=== PATIENT | female | born 1980 | race Two or more races ===

== ENCOUNTER 2021-08-11 23:45 | Emergency (ER) | payer OTHER ==
[~2021-08-11] VITALS: Ht 165.1 cm; Wt 79.4 kg
[2021-08-12] MEDS ORDERED: ZOVIRAX800 MG PO (00:06)
[2021-08-12] MEDS ORDERED: ZOVIRAX5 GM (00:07)
[2021-08-12] MEDS ORDERED: BENADRYL ALLERG25 MG PO (04:29)
== END 2021-08-12 04:46 | disposition home or self-care (01) ==
LOC: ER 23:45
DX: L30.9 Dermatitis, unspecified (principal); B02.8 Zoster with other complications

== ENCOUNTER 2022-04-17 12:32 | Outpatient (CLI) | payer OTHER ==
[~2022-04-17 12:32] MED LIST: BENADRYL ALLERG25 MG PO; ZOVIRAX5 GM; ZOVIRAX800 MG PO
== END 2022-04-17 12:35 | disposition home or self-care (01) ==
LOC: RAD 12:32
DX: M54.2 Cervicalgia (principal)

== ENCOUNTER 2022-04-27 07:53 | Outpatient (CLI) | payer OTHER | END 2022-04-27 07:55 | disposition home or self-care (01) | LOC: NUCLEAR 07:53 | PROVIDERS: ATTEND General Practice | DX: I73.9 Peripheral vascular disease, unspecified (principal) ==

== ENCOUNTER 2022-04-27 09:37 | Outpatient (CLI) | payer OTHER | END 2022-04-27 09:46 | disposition home or self-care (01) | LOC: RAD 09:37 | DX: M54.50 Low back pain, unspecified (principal); M54.6 Pain in thoracic spine ==

== ENCOUNTER 2022-05-04 09:05 | Outpatient (CLI) | payer OTHER | END 2022-05-04 09:18 | disposition home or self-care (01) | LOC: NUCLEAR 09:05 | PROVIDERS: ATTEND General Practice | DX: I73.9 Peripheral vascular disease, unspecified (principal) ==

== ENCOUNTER 2024-07-08 09:25 | Outpatient (CLI) | payer OTHER | END 2024-07-08 09:27 | disposition home or self-care (01) | LOC: NUCLEAR 09:25 | PROVIDERS: ATTEND General Practice | DX: R00.2 Palpitations (principal); R00.9 Unspecified abnormalities of heart beat ==

== ENCOUNTER 2024-11-06 07:22 | Outpatient (CLI) | payer OTHER | END 2024-11-06 07:24 | disposition home or self-care (01) | LOC: NUCLEAR 07:22 | PROVIDERS: ATTEND General Practice | DX: E21.4 Other specified disorders of parathyroid gland (principal) ==